=== PATIENT | female | born 1960 | race Caucasian/White ===

== ENCOUNTER 2025-06-03 23:02 | Emergency (ER) | payer OTHER, MEDICAID ==
[~2025-06-03] VITALS: Ht 160 cm; Wt 93.0 kg
[2025-06-03 23:16] VITALS: O2SAT 100
[2025-06-04 01:23] LABS: BASOPHILS % 0.4 % (0.0-2.0); EOSINOPHILS % 0.6 % (0.0-5.0); HEMATOCRIT. 45.2 % (36.0-48.0); HEMOGLOBIN. 14.8 g/dL (12.0-16.0); LYMPHOCYTES % 25.4 % (20.0-50.0); MEAN PLATELET VOLUME 8.4 fl (7.4-10.4); MONOCYTES % 7.1 % (2.0-8.0); NEUTROPHILS % 66.5 % (40.0-76.0); PLATELET 271 x1000/uL (130-400); RED BLOOD CELL COUNT 4.94 mill/uL (4.2-5.4); RED CELL DISTRIBUTION WIDTH 13.5 % (11.6-14.6)
[2025-06-04 01:35] LABS: CREATININE 0.7 mg/dL (0.6-1.0); UREA NITROGEN BLOOD 14 mg/dL (9-23)
[2025-06-04] MEDS: ACETAMINOPHEN WITH CODEINE 300/30MG TABLET PO ONE (02:43)
[2025-06-04] MEDS: ACETAMINOPHEN WITH CODEINE 300/30MG TABLET PO NR (02:57)
[2025-06-04] MEDS ORDERED: IBUP-1455 MT (05:35)
[2025-06-04] MEDS ORDERED: CYCL10TA21 MT (05:35)
[2025-06-04] MEDS: IOHEXOL-300 100 ML BOTTLE ONE (05:49)
[2025-06-04 05:59] VITALS: BP 118/56; PULSE 79; RESP 14; TEMP 36.8; O2SAT 97
== END 2025-06-04 06:01 | disposition home or self-care (01) ==
LOC: ER 23:02
DX: S20.219A Contusion of unspecified front wall of thorax, initial encounter (principal); S20.212A Contusion of left front wall of thorax, initial encounter; I10 Essential (primary) hypertension; V89.2XXA Person injured in unspecified motor-vehicle accident, traffic, initial encounter; Y93.89 Activity, other specified; Y92.89 Other specified places as the place of occurrence of the external cause; Y99.8 Other external cause status
CPT/HCPCS: 99285; 80048; 85025; 36415; 71045; 71260; 72128; Q9967; Z7610